=== PATIENT | male | born 1950 | race Caucasian/White ===

== ENCOUNTER 2020-10-10 14:09 | Emergency (ER) | payer MEDICARE, MEDICAID, SELFPAY ==
[2020-10-10 14:10] VITALS: BP 132/79; PULSE 116; RESP 16; TEMP 36.6; O2SAT 98; BMI 23.3
--- NOTE | 2020-10-10 14:48 | HMH.EDWNDL ---
ED Disposition Clinical Impression: Laceration Disposition: Home, Self-Care Condition on Discharge: Good Instructions: DI for Laceration Repair Additional Instructions: Sutures need to be removed in approximately 7 days. Follow-up for wound check with PCP in approximately 3 days. Return to a primary or emergency room provider if you develop fever, foul-smelling drainage from the wound, increasing pain or redness. Change the dressing daily and keep the wound clean and dry. Referrals: Sabina Flores PA [Primary Care Provider] - 3 days - Critical Care Critical Care Time: No Attestation: On 10/10/20, the high probability of a clinically significant, sudden or life threatening deterioration of the following system(s) required my full and direct attention, intervention and personal management. The time I documented below is in addition to time spent performing reported procedures but includes the following listed in this critical care notation. Medical Decision Making - Luis Inquiry Pt receiving controlled substance: No Vital Signs: 10/10/20 14:10 Temperature 98 F Temperature Source Oral Pulse Rate [Radial] 116 H Respiratory Rate 16 Blood Pressure [Right Arm] 132/79 Blood Pressure Mean [Right Arm] 96 Blood Pressure Position [Right Arm] Sitting 02 Sat by Pulse Oximetry 98 Oxygen Delivery Method Room Air Medical Decision Narrative: Laceration repaired as below. No obvious foreign body. No apparent tendon damage. Tetanus updated here. Discussed wound care instructions and precautions. Instructed on suture removal in approximately 7 days. No crush injury. Wound/Laceration HPI - General Chief Complaint: Wound/Laceration Stated Complaint: ao @1330 lac to middle Rt finger Time Seen by Provider: 10/10/20 14:35 Mode of Arrival: Ambulatory Limitations: No Limitations Description of Symptoms (Recalled from ER Triage Doc. by RN): TO ED PER PVT CAR WITH C/O LAC TO RT RING FINGER STATES PUTTING BRAKES ON CAR FELL BACKWARD AND FINGER CAUGHT IN SEAT. - History of Present Illness HPI narrative: This is a 69-year-old male, [id number] who presents to the emergency department for injury to the distal pad of the right long finger that occurred about 30 minutes prior to arrival while he was working on the brake system in his car. He cleaned it out at home and presents here because he thought it might need sutures. No movement limitations. Complains of pain only on the distal pad of the finger. He did not remove any foreign bodies and has not seen any foreign bodies. - Related Data Previous Rx's Medication Instructions Recorded amoxicillin 500 mg capsule 500 mg PO Q12H 10 Days #20 cap 06/07/19 tamsulosin 0.4 mg capsule See Rx Instructions .ROUTE 03/26/20 .COMPLEX #60 cap Allergies Allergy/AdvReac Type Severity Reaction Status Date / Time No Known Drug Allergies Allergy Unknown Verified 02/20/19 13:16 [NKDA] [facility] History - Hepatitis A Screen Drug use history?: No High risk sexual behaviors?: No History of sexually transmitted infection?: No Currently employed?: No Childcare worker?: No Do you have indoor plumbing?: Yes Do you have electricity?: Yes Attestation statement:: This patient has been screened for Hepatitis A risk factors. I have reviewed the patient's past medical history: Yes Medical History: Reports:: Cancer (BLADDER), Gastroesophageal Reflux Disease(GERD) Other Medical History: Reports: Other Other Surgeries: Yes: Cancer Surgery, Colonoscopy Amputation: No Fractures: Yes (left wrist) Comment: Bladder Cancer - Social History Smoking Status: Current every day smoker Tobacco Type: cigarettes # Packs/Day (cigarettes): 1 Alcohol Intake: never Substance Use Type: denies use Occupational Status: retired Housing: apartment Household Members: none Family Hx:: Cancer ROS Obtained: Yes All systems reviewed & no additional complaints Physical Exam - Gen
--- NOTE | 2020-10-10 14:55 | PC.NURSE ---
PSO DRESSING APPLIED TO RT RING FINGER
[2020-10-10 15:20] VITALS: BP 145/78; PULSE 78; RESP 16; TEMP 36.6; O2SAT 98
== END 2020-10-10 15:22 | disposition home or self-care (01) ==
PROVIDERS: Emergency Provider Emergency Medicine; PCP Physician Assistant
DX: S61.214A Laceration without foreign body of right ring finger without damage to nail, initial encounter (principal); W26.9XXA Contact with unspecified sharp object(s), initial encounter; Y92.89 Other specified places as the place of occurrence of the external cause; K21.9 Gastro-esophageal reflux disease without esophagitis; F17.210 Nicotine dependence, cigarettes, uncomplicated; Z23 Encounter for immunization
CPT/HCPCS: 12001; 90471; 90715; 99282

== ENCOUNTER → 2022-10-05 23:15 | Outpatient (CLI) | payer MEDICARE, MEDICAID, SELFPAY ==
[2022-10-05 18:30] LABS: Basophils % 0.2 % (0.1-2.0); Eosinophils # 0.1 K/mm3 (0.0-0.4); Eosinophils % 1.1 % (0.1-12.0); Hematocrit 49.1 % (42.0-52.0); Hemoglobin 15.9 g/dL (14.1-18.0); Lymphocytes # 1.6 K/mm3 (0.7-4.5); Lymphocytes % 21.4 % (10-50); Mean Corpuscular HGB Conc 32.5 g/dL (31.8-35.4); Mean Corpuscular Hemoglobin 29.2 pg (27.0-31.2); Mean Corpuscular Volume 89.9 fl (80-94); Mean Platelet Volume 9.5 fl (7.4-10.4); Monocytes # 0.5 K/mm3 (0.1-1.0); Monocytes % 6.2 % (1.7-9.3); Neutrophils # 5.4 K/mm3 (1.8-7.8); Neutrophils % 71.2 % (37.0-80.0); Platelet Count 257 K/mm3 (142-424); Red Blood Count 5.46 M/mm3 (4.60-6.20); Red Cell Distribution Width 14.6 % (11.5-17.5); White Blood Count 7.5 K/mm3 (4.8-10.8)
[2022-10-05 18:39] LABS: Alanine Aminotransferase 20 U/L (12-78); Albumin Level 4.7 g/dl (3.5-5.0); Albumin/Globulin Ratio 1.3 (1.1-1.8); Alkaline Phosphatase 86 U/L (38-126); Anion Gap 17.3 mEq/L (5-15); Aspartate Amino Transferase 25 U/L (17-59); Bilirubin,Total 0.9 mg/dl (0.2-1.3); Blood Urea Nitrogen 12 mg/dl (9-20); Calcium 9.4 mg/dl (8.4-10.2); Carbon Dioxide 25 mmol/L (22.0-30.0); Chloride 103 mmol/L (98-107); Chol/HDL Ratio 5.3 (1-3.5); Cholesterol 187 mg/dl (140-200); Estimated Glomerular Filt Rate 95 ml/min (>60); GFR (African American) 115 ML/MIN (>60); Globulin 3.6 g/dL (1.3-3.2); Glucose 104 mg/dl (74-100); HDL Cholesterol 35 mg/dl (40-60); Potassium 4.3 mmoL/L (3.5-5.1); Sodium 141 mmol/L (136-145); Total Protein,Serum 8.3 g/dl (6.3-8.2); Triglycerides 154 mg/dl (30-150); VLDL Cholesterol 31 mg/dL (0-40)
[2022-10-05 18:50] LABS: Direct LDL Cholesterol 113.61 mg/dL (100-129)
[2022-10-05 19:13] LABS: Prostate Specific Ag Screen 3.1 ng/ml (0.0-4.0); Thyroid Stimulating Hormone 3.35 uIU/mL (0.465-4.68)
== END ==
PROVIDERS: PCP Physician Assistant; Visit Provider Physician Assistant
DX: K21.9 Gastro-esophageal reflux disease without esophagitis (principal); Z85.51 Personal history of malignant neoplasm of bladder; Z12.5 Encounter for screening for malignant neoplasm of prostate; Z01.818 Encounter for other preprocedural examination; Z79.899 Other long term (current) drug therapy; N40.1 Benign prostatic hyperplasia with lower urinary tract symptoms; H26.9 Unspecified cataract
CPT/HCPCS: 80053; 80061; 84443; 85025; G0103

== ENCOUNTER 2023-10-26 10:05 | Outpatient (CLI) | payer MEDICARE, MEDICAID, SELFPAY ==
[2023-10-26 19:06] LABS: Basophils # 0.1 K/mm3 (0-0.2); Basophils % 0.6 % (0.1-2.0); Eosinophils # 0.1 K/mm3 (0.0-0.4); Eosinophils % 1.5 % (0.1-12.0); Hematocrit 49.9 % (42.0-52.0); Hemoglobin 15.9 g/dL (14.1-18.0); Lymphocytes # 1.6 K/mm3 (0.7-4.5); Lymphocytes % 20.3 % (10-50); Mean Corpuscular HGB Conc 31.8 g/dL (31.8-35.4); Mean Corpuscular Hemoglobin 30.6 pg (27.0-31.2); Mean Corpuscular Volume 96.1 fl (80-94); Mean Platelet Volume 10.5 fl (7.4-10.4); Monocytes # 0.6 K/mm3 (0.1-1.0); Monocytes % 8.1 % (1.7-9.3); Neutrophils # 5.5 K/mm3 (1.8-7.8); Neutrophils % 69.4 % (37.0-80.0); Platelet Count 289 K/mm3 (142-424); Red Blood Count 5.19 M/mm3 (4.60-6.20); Red Cell Distribution Width 15.1 % (11.5-17.5); White Blood Count 7.9 K/mm3 (4.8-10.8)
[2023-10-26 19:16] LABS: Microalbumin/Creatinine Ratio 9.3
[2023-10-26 19:19] LABS: Creatinine,Urine Random 152 mg/dL (Not Estab.)
[2023-10-26 19:40] LABS: Hemoglobin A1C 5.2 % (4.0-6.0)
[2023-10-26 22:01] LABS: Alanine Aminotransferase 20 U/L (12-78); Albumin Level 4.3 g/dl (3.5-5.0); Albumin/Globulin Ratio 1.2 (1.1-1.8); Alkaline Phosphatase 75 U/L (38-126); Anion Gap 12.5 mEq/L (5-15); Aspartate Amino Transferase 32 U/L (17-59); Bilirubin,Total 0.9 mg/dl (0.2-1.3); Blood Urea Nitrogen 10 mg/dl (9-20); Calcium 9.4 mg/dl (8.4-10.2); Carbon Dioxide 23 mmol/L (22.0-30.0); Chloride 108 mmol/L (98-107); Estimated Glomerular Filt Rate 95 ml/min (>60); GFR (African American) 115 ML/MIN (>60); Globulin 3.5 g/dL (1.3-3.2); Glucose 103 mg/dl (74-100); Potassium 4.5 mmoL/L (3.5-5.1); Sodium 139 mmol/L (136-145); Total Protein,Serum 7.8 g/dl (6.3-8.2)
[2023-10-26 22:18] LABS: 25-OH Vitamin D, Total 26.9 ng/mL (30-100)
[2023-10-26 22:33] LABS: Prostate Specific Ag Screen 2.8 ng/ml (0.0-4.0); Thyroid Stimulating Hormone 6.63 uIU/mL (0.465-4.68)
== END 2023-10-26 23:59 | disposition home or self-care (01) ==
LOC: LAB.DROPOF 10-27 09:41
PROVIDERS: PCP Internal Medicine; Visit Provider Internal Medicine
DX: R53.83 Other fatigue (principal); R73.03 Prediabetes; E55.9 Vitamin D deficiency, unspecified; Z12.5 Encounter for screening for malignant neoplasm of prostate; Z13.1 Encounter for screening for diabetes mellitus
CPT/HCPCS: 80050; 80053; 82043; 82306; 82570; 83036; 84443; 85025; G0103

== ENCOUNTER 2023-10-27 11:20 | Outpatient (CLI) | payer MEDICARE, MEDICAID, SELFPAY ==
[2023-10-27 19:38] LABS: Free T4 (Free Thyroxine) 1.22 ng/dl (0.78-2.19)
[2023-10-27 20:13] LABS: Thyroid Stimulating Hormone 5.91 uIU/mL (0.465-4.68)
[2023-10-29 12:13] LABS: Thyroid Peroxidase Antibodies <9 IU/mL (0-34); Triiodothyronine (T3) Total 144 ng/dL (71-180)
[2023-10-29 17:20] LABS: Thyroglobulin Level <1.0 IU/mL (0.0-0.9)
== END 2023-10-27 23:59 | disposition home or self-care (01) ==
LOC: LAB.DROPOF 10-28 11:20
PROVIDERS: PCP Internal Medicine; Visit Provider Internal Medicine
DX: R53.83 Other fatigue (principal); E03.9 Hypothyroidism, unspecified
CPT/HCPCS: 84439; 84443; 84480; 86376; 86800

== ENCOUNTER 2023-11-12 14:43 | Outpatient (CLI) | payer MEDICARE, MEDICAID, SELFPAY ==
--- NOTE | 2023-11-12 14:47 | CT_ITS ---
FINAL REPORT TECHNIQUE: Thin section axial images were obtained from the lung apices to the upper abdomen by computed tomography. Reformatted images were obtained and reviewed. This study was performed with techniques to keep radiation doses al low as reasonably achievable (ALARA). Individualized dose reduction techniques using automated exposure control or adjustment of mA and/or kV according to the patient's size were employed. CLINICAL HISTORY: lung cancer screening CURRENT SMOKER 55 YEARS, 1PPD COMPARISON: None FINDINGS: CHEST CT LOW DOSE 73-year-old male, current smoker, [id number] history CTDI vol (mGy): 2.9 DLP (mGy-cm): 107.59 There is no axillary adenopathy. Multiple mildly enlarged mediastinal nodes, many of which are calcified. A small hiatal hernia is present. The heart is normal in size. Severe coronary artery calcifications are present. There is no pericardial or pleural effusion. There is severe emphysema and mild pulmonary scarring. Lung window images demonstrate there are several right middle lobe nodules, one of the larger measures 5 mm in size, best seen on image #60 of series 3. There is a left lung base 6 mm nodule, best seen on image #72 of series 3. There are several calcified granulomas present. Limited images of the upper abdomen are unremarkable. IMPRESSION: Lung-RADS category 3S, the S designation for coronary artery calcifications. Recommend 6 month follow up low dose chest CT. Reviewed, Interpreted and Dictated by Khoa Dale III, MD Transcribed by Sabi Anand Authenticated and [facility]
== END 2023-11-12 23:59 | disposition home or self-care (01) ==
LOC: RAD 14:43
PROVIDERS: PCP Internal Medicine; Visit Provider Internal Medicine
DX: Z87.891 Personal history of nicotine dependence (principal)
CPT/HCPCS: 71271

== ENCOUNTER 2023-12-23 13:02 | Day surgery (SDC) | payer MEDICARE, MEDICAID, SELFPAY ==
[2023-12-20 17:18] VITALS: BMI 23.6
--- NOTE | 2023-12-23 | ECG_ITS ---
APPROVED REPORT Exam: Resting ECG HR:89 bpm ECG Measurements Heart Rate 89 AXES GA 188 P 68 QRSd 147 QRS 47 QT 386 T -13 QTc 433 Conclusion SINUS RHYTHM WITH FREQUENT VENTRICULAR PREMATURE COMPLEXES IN A BIGEMINAL PATTERN RIGHT BUNDLE BRANCH BLOCK [120+ ms QRS DURATION, UPRIGHT V1, 40+ ms S IN I/aVL/V4/V5/V6] ABNORMAL ECG UNCONFIRMED REPORT Electronically signed by : Kian Thompson MD 12/24/2023 09:33:26
[2023-12-23 13:36] VITALS: BP 136/78; PULSE 89; RESP 18; TEMP 36.4; O2SAT 98
--- NOTE | 2023-12-23 13:57 | P.PNANES_ITS ---
[facility] Disclaimer: The information contained in this section may have been updated after the patient was seen, as this information can be updated by other users. Medical History Skin cancer Fatigue Bladder cancer GERD (gastroesophageal reflux disease) Surgical History H/O colonoscopy History of bladder surgery Family History Other No significant family history Social History Smoking Status: Current every day smoker tobacco type: cigarettes packs per day: 1 alcohol intake: never substance use type: denies use current occupational status: retired Travel in the last 8 weeks: None household members: none housing: apartment [facility] Anesthesia Checklist Patient Identification Patient Identification: Arm Band Structural Data Admitted From: Home Planned Operative Procedure/s: EGD Consent for Planned Operative Procedure(s) Verified: Yes Verified Documents: Surgical Consent and History and Physical NPO Status Verified Time NPO: 00:00 Additional verifications Anesthesia Reactions: No Airway Assessment Mallampati Score:: Class II C-Spine Mobility Assessed: Yes TMJ Mobility Assessed: Yes Dentition: Edentulous Neurological Assessment Level of Consciousness: Awake, Alert and Appropriate Anesthesia Plan Anesthesia Risk discussed: Yes Anesthesia Plan: Verified ASA Class: III Anesthesia Type: MAC
[2023-12-23 14:20] VITALS: O2SAT 100
--- NOTE | 2023-12-23 14:33 | EXP.HP ---
History of Present Illness *Admission Date: 12/23/23 *Reason for visit:: Screening *History of present illness: Mr. Gillis is a 73-year-old gentleman who is here for screening colonoscopy. His last colonoscopy was 10 to 12 years ago. The examination is deemed medically necessary for colonoscopy. The patient has been seen, interviewed and examined prior to the procedure by both myself and the anesthesia provider. [facility] Disclaimer: The information contained in this section may have been updated after the patient was seen, as this information can be updated by other users. Medical History (Updated 12/23/23 @ 15:43 by César Win II, MD) Skin cancer Fatigue Bladder cancer GERD (gastroesophageal reflux disease) Surgical History H/O colonoscopy History of bladder surgery Family History Other No significant family history Social History Smoking Status: Current every day smoker tobacco type: cigarettes packs per day: 1 alcohol intake: never substance use type: denies use current occupational status: retired Travel in the last 8 weeks: None household members: none housing: apartment Other Medical History Have you received the Flu Vaccine for this season: No Have you received the Pneumonia Vaccine: No Review of Systems Review of Systems Review of systems (narrative): Negative *Cardiovascular Comments: Negative *Gastrointestinal Comments: Negative *Genitourinary Comments: Negative *Musculoskeletal Comments: Negative *Neurologic Comments: Negative Meds Home Medications and Allergies Home Medications ?Medication ?Instructions ?Recorded ?Confirmed ?Type cholecalciferol (vitamin D3) 125 125 mcg PO DAILY #30 caps 10/27/23 12/20/23 Rx mcg (5,000 unit) capsule dexlansoprazole 60 mg See Rx Instructions .Route 10/28/23 12/20/23 Rx capsule,biphase delayed release .COMPLEX #90 caps tamsulosin 0.4 mg capsule See Rx Instructions .Route 10/28/23 12/20/23 Rx .COMPLEX #180 caps New Prescriptions to Start Prescriptions: Allergies Allergy/AdvReac Type Severity Reaction Status Date / Time No Known Drug Allergies Allergy Unknown Verified 10/27/23 10:05 [NKDA] Exam Data for Last 24 hours Vital signs and Labs for Last 24 Hours: Temp Pulse Resp BP Pulse Ox O2 Del Method O2 Flow Rate 97.5 F L 89 18 136/78 98 Nasal Cannula 5 12/23/23 13:36 12/23/23 13:36 12/23/23 13:36 12/23/23 13:36 12/23/23 13:36 12/23/23 14:20 12/23/23 14:20 I & O for Last 24 hours: Intake & Output 12/20/23 12/21/23 12/22/23 12/23/23 23:59 23:59 23:59 23:59 Weight 160 lb *Routine HEENT Exam Head: Present normocephalic Eye: Present EOMI and PERRL ENT: Present mucous membranes moist *Routine Neck Exam Neck: Present supple *Routine Respiratory Exam Respiratory: Present CTA bilaterally *Routine Cardiovascular Exam Cardiovascular: Present RRR *Routine Abdominal Exam Abdominal: Present soft and normoactive bowel sounds; Absent tenderness *Routine Rectal Exam Rectal:: deferred *Routine Genitalia Exam Genitalia:: deferred *Routine Extremities Exam Extremities: Absent cyanosis, clubbing or edema *Routine Skin Exam Skin: Present warm; Absent rash *Routine Neurological Exam Neurological: Present alert and oriented X3 Assessment and Plan *Assessment and plan (1) Screening for colon cancer: Status: Acute Category: Medical Code(s): Z12.11 - Encounter for screening for malignant neoplasm of colon Plan A/P: 1. Screening for colon cancer is the preprocedural diagnosis. The patient will be anesthetized/sedated using MAC sedation. The patient has been seen and examined. Cardiac and lung assessment prior to the examination is stable. Proceed with planned colonoscopy
--- NOTE | 2023-12-23 14:52 | P.CONCA_ITS ---
History of Present Illness History of Present Illness Consult date: 12/23/23 Consult reason: pre-op evaluation Chief complaint: Preop eval for bigeminy History of present illness: This is a 73-year-old white male with past medical history of BPH, history of bladder cancer, gastric reflux and tobacco use who presented to preop today for colonoscopy. Preop EKG was obtained which shows normal sinus rhythm with frequent PVCs in a bigeminal pattern rate 89, right bundle branch block. Cardiology was asked to consult for clearance. Patient resting comfortably, denies chest pain, shortness of breath, palpitations, dizziness. Patient repo rts he has never seen cardiology or had any problems with his heart. [facility] Disclaimer: The information contained in this section may have been updated after the patient was seen, as this information can be updated by other users. Medical History (Updated 12/23/23 @ 14:56 by Edith Joyner APRN) Skin cancer Fatigue Bladder cancer GERD (gastroesophageal reflux disease) Surgical History H/O colonoscopy History of bladder surgery Family History Other No significant family history Social History Smoking Status: Current every day smoker tobacco type: cigarettes packs per day: 1 alcohol intake: never substance use type: denies use current occupational status: retired Travel in the last 8 weeks: None household members: none housing: apartment Review of Systems Review of Systems Review of systems:: pertinent systems reviewed and negative unless documented below Exam Data for Last 24 hours Vital signs and Labs for Last 24 Hours: Temp Pulse Resp BP Pulse Ox O2 Del Method O2 Flow Rate 97.5 F L 89 18 136/78 98 Nasal Cannula 5 12/23/23 13:36 12/23/23 13:36 12/23/23 13:36 12/23/23 13:36 12/23/23 13:36 12/23/23 14:20 12/23/23 14:20 I & O for Last 24 hours: Intake & Output 12/20/23 12/21/23 12/22/23 12/23/23 23:59 23:59 23:59 23:59 Weight 160 lb Constitutional Constitutional: no acute distress *Routine Respiratory Exam Respiratory: Present CTA bilaterally and symmetric chest movement *Routine Cardiovascular Exam Cardiovascular: Present RRR, Normal S1 and Normal S2 *Routine Abdominal Exam Abdominal: Present soft and normoactive bowel sounds; Absent tenderness *Routine Extremities Exam Extremities: Present full ROM and normal capillary refill; Absent edema *Routine Skin Exam Skin: Present intact, dry and warm Detailed Neck Exam: Thyroids Thyroid: Absent bruit Meds Home Medications and Allergies Home Medications ?Medication ?Instructions ?Recorded ?Confirmed ?Type cholecalciferol (vitamin D3) 125 125 mcg PO DAILY #30 caps 10/27/23 12/20/23 Rx mcg (5,000 unit) capsule dexlansoprazole 60 mg See Rx Instructions .Route 10/28/23 12/20/23 Rx capsule,biphase delayed release .COMPLEX #90 caps tamsulosin 0.4 mg capsule See Rx Instructions .Route 10/28/23 12/20/23 Rx .COMPLEX #180 caps New Prescriptions to Start Prescriptions: Allergies Allergy/AdvReac Type Severity Reaction Status Date / Time No Known Drug Allergies Allergy Unknown Verified 10/27/23 10:05 [NKDA] Assessment and Plan *Assessment and plan (1) Frequent PVCs: Status: Acute Category: Medical Code(s): I49.3 - Ventricular premature depolarization (2) Bigeminy: Status: Acute Category: Medical Code(s): I49.8 - Other specified cardiac arrhythmias Plan Frequent PVCs Bigeminy EKG shows sinus rhythm with frequent PVCs in a bigeminal pattern, rate 89, right bundle branch block. Recommend obtaining labs- checking BMP and troponin If labs are normal can administer metoprolol succinate 25 mg p.o. x 1 and proceed with procedure If troponin comes back elevated please consult Dr. Wang for further orders If hypokalemia is present will need replacement Patient will need outpatient cardiology follow-up for echo and additional testing CV summary 12/23/2023: Will check BMP and troponin. If hypokalemia is present will need replacement. If troponin is normal can proceed with colonoscopy after administering metoprolol succinate 25 mg p.o. x 1. If troponin is abnormal please contact Dr. Wang for further orders. Patient will need outpatient cardiology follow-up and echo.
[2023-12-23 15:12] LABS: Basophils # 0.1 K/mm3 (0-0.2); Basophils % 0.9 % (0.1-2.0); Eosinophils # 0.2 K/mm3 (0.0-0.4); Eosinophils % 1.5 % (0.1-12.0); Hematocrit 45.2 % (42.0-52.0); Hemoglobin 15.9 g/dL (14.1-18.0); Lymphocytes # 1.5 K/mm3 (0.7-4.5); Lymphocytes % 15.2 % (10-50); Mean Corpuscular HGB Conc 35.2 g/dL (31.8-35.4); Mean Corpuscular Hemoglobin 30.6 pg (27.0-31.2); Mean Platelet Volume 8.5 fl (7.4-10.4); Monocytes # 0.6 K/mm3 (0.1-1.0); Monocytes % 5.9 % (1.7-9.3); Neutrophils # 7.7 K/mm3 (1.8-7.8); Neutrophils % 76.5 % (37.0-80.0); Platelet Count 238 K/mm3 (142-424); Red Blood Count 5.19 M/mm3 (4.60-6.20); White Blood Count 10.1 K/mm3 (4.8-10.8)
[2023-12-23 15:18] LABS: Chloride 107 mmol/L (98-107); Potassium 4.1 mmoL/L (3.5-5.1); Sodium 139 mmol/L (136-145)
[2023-12-23 15:21] LABS: Anion Gap 12.1 mEq/L (5-15); Blood Urea Nitrogen 9 mg/dl (9-20); Calcium 9.5 mg/dl (8.4-10.2); Carbon Dioxide 24 mmol/L (22.0-30.0); Creatinine Clearance Estimated 67 mL/min (50-200); Estimated Glomerular Filt Rate 82 ml/min (>60); GFR (African American) 100 ML/MIN (>60); Glucose 104 mg/dl (74-100)
[2023-12-23 15:34] LABS: Troponin I < 0.01 ng/ml (0.00-0.034)
--- NOTE | 2023-12-23 15:43 | P.PCN_ITS ---
[facility] Procedure Note Date: 12/23/23 Time: 15:43 Procedure Note:: Colonoscopy Procedure Report: Colonoscopy with endoscopic mucosal resection/EMR (submucosal injection, snare cautery, soft coagulation and Endo Clip placement) and cold snare polypectomy Endoscopist: César Win II, MD Referring physician: Marvin Harkins MD Date of Procedure: December 23, 2023 Equipment: Olympus 190 variable stiffness pediatric colonoscope Sedation: MAC sedation Indication: Mr. Gillis is a 73-year-old gentleman who is here for screening colonoscopy. His last colonoscopy was 10 or 12 years ago. He reports no abdominal pain, weight loss, change in his bowel habits or rectal bleeding. He may occasionally skip a day without a bowel movement. He does state that his father may have had colon cancer at the age of 70. The patient's recent hemoglobin 15.9 and hematocrit 45.2 were normal today. He had normal troponins. Procedure: Prior to the procedure, a history and physical exam was performed, and patient's medications and allergies were reviewed. The risks, benefits and alternatives of the sedation and procedure were discussed with the patient. All questions were answered and informed consent was obtained. The patient was brought to the procedure room. Patient identification and proposed procedure were verified by the physician and the nurse. The patient was placed in a left lateral decubitus position and the scope was passed under direct vision. Throughout the procedure, the patient's blood pressure, pulse, and oxygen saturations were monitored continuously. The colonoscopy was accomplished without difficulty. The patient tolerated the procedure well. Findings: On digital rectal examination there was normal rectal tone. There were no external hemorrhoids. The prostate was 2-3+ with a nodule along the right upper lateral margin of the prostate. The colonoscope was introduced through the anal canal to the rectum and advanced to the cecum. The ileocecal valve and appendiceal orifice were identified. The scope was advanced a short distance into the ileum which appeared grossly normal. The scope was then withdrawn into the colon. There was a large 22?23 mm laterally spreading granular sessile tubular adenoma extending over a haustral fold in the proximal ascending colon. Based on its size, this was removed via EMR. The base of the polyp was injected with Eleview and 10 mL of Eleview were injected. Next, the snare was utilized to remove this completely in piecemeal resection using snare cautery. Next, the margins of this polyp were coagulated using soft coagulation. Lastly, the larger post polypectomy site was closed using 2 endoclips. There were 10 additional polyps (ascending x 1 (4 mm), descending x 5 (4, 5, 5, 6 and 8 mm), and rectosigmoid/rectal x 4 (5, 6, 6 and 8 mm). The remaining smaller polyps were all removed via cold snare polypectomy. The cecum, ascending and transverse colon and mucosa were grossly normal. There were scattered diverticuli throughout the descending and sigmoid colon (LEFT colon). The rectum itself was normal. Upon retroflexion within the rectum there were grade 2 internal hemorrhoids. The preparation was excellent throughout with [place] Preparation Score of 9. The cecal time was 22 minutes. Impression: 1. Large sessile advanced adenomatous polyp (22 to 23 mm?laterally spreading granular adenomatous polyp) status post EMR resection 2. 10 additional diminutive colonic polyps 3. Left-sided diverticulosis 4. Grade 2 internal hemorrhoids 5. Prostate nodule right upper lateral margin Plan: I will follow-up the polyp histology and recommend repeat surveillance colonoscopy again in 6 months. I will discuss the findings with the patient and family. I will order PSA testing today as well. I would like for him to begin a fiber bowel regimen.
[2023-12-23 16:22] VITALS: BP 91/56; PULSE 106; RESP 14; O2SAT 95
[2023-12-23 16:32] VITALS: BP 89/61; PULSE 96; RESP 18; O2SAT 96
[2023-12-23 16:42] VITALS: BP 117/66; PULSE 104; RESP 18; O2SAT 96
[2023-12-23 16:52] VITALS: BP 139/69; PULSE 96; RESP 18; O2SAT 96
== END 2023-12-23 16:52 | disposition home or self-care (01) ==
PROVIDERS: Nurse Practitioner; PCP Internal Medicine; Visit Provider Internal Medicine Gastroenterology
PROC: 0DJD8ZZ Inspection of Lower Intestinal Tract, Via Natural or Artificial Opening Endoscopic (ICD-10-PCS; CPT 45378; principal; 2023-12-23 14:30)
DX: Z12.11 Encounter for screening for malignant neoplasm of colon (principal); D12.7 Benign neoplasm of rectosigmoid junction; D12.2 Benign neoplasm of ascending colon; I49.3 Ventricular premature depolarization; I49.8 Other specified cardiac arrhythmias; F17.210 Nicotine dependence, cigarettes, uncomplicated; Z80.0 Family history of malignant neoplasm of digestive organs
CPT/HCPCS: 45390; 80048; 84153; 84484; 85025; 88305; 93005

== ENCOUNTER 2024-06-15 13:28 | Outpatient (CLI) | payer MEDICARE, MEDICAID, SELFPAY ==
--- NOTE | 2024-06-15 | CA_ITS ---
APPROVED REPORT EXAM: Comprehensive 2D, Doppler, and color-flow Echocardiogram Publications Sales Representative: CAROLIN Devine, RVS Ht: 5 ft 8 in Wt: 159lbs BSA: 1.85 BP: 140/68 mmHg Indications: LV function, Smokeer, Emphysema, Pre-op, Abn EKG-Bigeminy 2D Dimensions IVSd 1.01 cm LVEF (Visual) 73.40 % PWd 1.09 cm LA Volume 49.10 mL LVDd 4.79 cm LA Volume Index 25.80 mL/m2 (M/F) 16-34 LVDs 2.76 cm Left Atrium 4.45 cm M-Mode Dimensions LA Diam 3.37 cm (1.9-4.0) EPSs 0.85 cm TAPSE 1.83 (<1.7) LV Diastology E Decel Time 187 (160-240 msec) E/A Ratio 0.81 MED A' 11.10 cm/s LAT A' 12.60 cm/s Aortic Valve KIERSTEN Index 1.18 cm2/m2 AoV Peak Damian. 112.0 (50-130 cm/s) AO Peak GR. 5.00 mmHg AO Mean GR. 2.70 (<5 mmHg) AO VTI 24.7 (18-25 cm) KIERSTEN (VTI) 2.24 (2.5-4.5 cm2) Mitral Valve MV A Velocity 86.0 (40-130 cm/s) E/A Ratio 0.81 Pulmonary Valve NV End VMAX 177.0 cm/s Tricuspid Valve TR P. Velocity 208.00 cm/s RAP Estimate 10.00 mmHg RVSP 27.30 mmHg Left Ventricle The left ventricle is normal size. The left ventricular systolic function is normal. The left ventricular ejection fraction is within the normal range. There is increased LV wall thickness. There is normal LV segmental wall motion. Transmitral Doppler flow pattern suggests impaired LV relaxation. LVEF is 55%. Right Ventricle Right ventricle is mildly dilated. The right ventricular systolic function is normal. Atria The left atrium size is normal. The right atrium size is normal. There is no Doppler evidence of interatrial shunt. Aortic Valve The aortic valve is mildly thickened. There is no aortic valvular stenosis. No aortic regurgitation is present. Mitral Valve The mitral valve is normal in structure and function. No evidence of mitral valve stenosis. Trace mitral regurgitation. Tricuspid Valve Tricuspid valve is grossly normal in structure and function. Mild tricuspid regurgitation. RVSP is 20-25 mmHg. Pulmonic Valve The pulmonary valve is normal in structure. Mild pulmonic regurgitation. Great Vessels The aortic root is normal in size. IVC is normal in size and collapses >50% with inspiration. Pericardium There is no pericardial effusion. Other Information Study Quality: Fair Conclusion Normal biventricular systolic function. Mild RV dilation. Mild TR, mild PI. Electronically signed by : Kathleen Li MD 06/18/2024 22:38:53
== END 2024-06-15 23:59 | disposition home or self-care (01) ==
LOC: RT 13:29
PROVIDERS: PCP Nurse Practitioner Family; Visit Provider Physician Assistant
DX: I51.7 Cardiomegaly (principal); I36.1 Nonrheumatic tricuspid (valve) insufficiency; I37.1 Nonrheumatic pulmonary valve insufficiency; I25.10 Atherosclerotic heart disease of native coronary artery without angina pectoris; R06.09 Other forms of dyspnea
CPT/HCPCS: 93306

== ENCOUNTER 2024-08-18 13:15 | Outpatient (CLI) | payer MEDICARE, MEDICAID, SELFPAY ==
--- NOTE | 2024-08-18 13:30 | CT_ITS ---
FINAL REPORT TECHNIQUE: Thin section axial images were obtained through the lungs using a low-dose technique per lung cancer screening protocol. Reconstruction images were obtained using the axial data. Exam was performed using dose reduction technique. CLINICAL HISTORY: lung cancer screening, current smoker, 1ppd for 50 years COMPARISON: 11/12/2023 FINDINGS: CTDLvol: 2.90 DLP: 110.46 Current smoker 50 pack year history Lungs: Emphysema and biapical scarring is stable. There is evidence of prior granulomatous disease. There is a stable 6 mm left lower lobe nodule on series 4, image 68. There are several stable right middle lobe nodules. For example a 5 mm nodule on image 59 is unchanged. No new nodules or masses identified. No consolidation. Lymph nodes: No thoracic lymphadenopathy. Mediastinum: Heart size is normal. Prominent coronary artery calcifications. Pleura/pericardium: No pleural or pericardial effusion. Other: No acute abnormality in the upper abdomen. IMPRESSION: Stable bilateral pulmonary nodules Lung RADS: 2 S Modifier S: Prominent coronary artery calcifications. Recommendation: 12 month follow-up low-dose chest CT recommended. Reviewed, Interpreted and Dictated by Rani Senior MD Transcribed by Maribel Andrews Authenticated and [facility]
== END 2024-08-18 23:59 | disposition home or self-care (01) ==
LOC: RAD 13:16
PROVIDERS: PCP Family Medicine; Visit Provider Family Medicine
DX: Z12.2 Encounter for screening for malignant neoplasm of respiratory organs (principal); R91.8 Other nonspecific abnormal finding of lung field; J43.9 Emphysema, unspecified; F17.210 Nicotine dependence, cigarettes, uncomplicated; I25.10 Atherosclerotic heart disease of native coronary artery without angina pectoris; J98.4 Other disorders of lung
CPT/HCPCS: 71271

== ENCOUNTER 2024-11-10 16:31 | Emergency (ER) | payer MEDICARE, MEDICAID, SELFPAY ==
[2024-11-10 16:38] VITALS: BP 139/61; PULSE 101; RESP 18; TEMP 36.7; O2SAT 95; BMI 23.6
--- NOTE | 2024-11-10 17:02 | XR_ITS ---
PROCEDURE INFORMATION: Exam: XR Left Ankle Exam date and time: 11/10/2024 5:10 PM Age: 74 years old Clinical indication: Injury or trauma; Other: Twisted; Blunt trauma; Ankle; Left; Additional info: Twisted / lateral and medial pain TECHNIQUE: Imaging protocol: Radiologic exam of the left ankle. Views: 3 or more views. COMPARISON: No relevant prior studies available. FINDINGS: Bones/joints: Spiral oblique lucency in the distal fibula consistent with minimally displaced fracture. Soft tissues: Soft tissue swelling of ankle IMPRESSION: Spiral oblique lucency in the distal fibula consistent with minimally displaced fracture.
[2024-11-10] MEDS: ACETAMINOPHEN 500MG TAB 1000 MG PO (17:13)
--- NOTE | 2024-11-10 17:35 | PC.NURSE ---
rounded on patient. no needs at this time. call light in reach
[2024-11-10 18:04] VITALS: BP 148/76; PULSE 85; RESP 18; TEMP 36.6; O2SAT 98
--- NOTE | 2024-11-10 19:00 | ED_ITS ---
<Statement entered by Cruzito Nuñez DO - 11/11/24 16:34> I was consulted by the ASHWIN, and we discussed the complexity of problems being addressed. I approved the treatment and management plan for this patient's care in the emergency department, thus performing a substantive portion of the medical decision making. Cruzito Nuñez DO Discharge Plan Disposition Patient Disposition: Home, Self-Care Prescriptions Prescriptions: No Action tamsulosin 0.4 mg capsule See Rx Instructions .ROUTE .COMPLEX Qty: 90 3RF Dose Instruction: TAKE 1 CAPSULE BY MOUTH TWICE DAILY FOR PROSTATE Rx Instructions: TAKE 1 CAPSULE BY MOUTH TWICE DAILY FOR PROSTATE patient needs to make an appt before anymore refills dexlansoprazole 60 mg capsule,biphase delayed releas See Rx Instructions .ROUTE .COMPLEX Qty: 90 2RF Dose Instruction: Take 1 capsule by mouth once daily Rx Instructions: Take 1 capsule by mouth once daily triamcinolone acetonide 0.1 % cream 1 applic topical BID PRN (Reason: skin lesion) Qty: 15 0RF Plenvu 140-9-5.2 gram powder in packet, sequential 500 ml PO .COMPLEX Qty: 3 0RF Rx Instructions: 500 mL orally; 6 pm evening before take first dose followed by 16 oz of water following instructions on kit. morning of exam take the second dosage followed by 16 oz of water . Referrals Follow up/Referrals: Poly Salas APRN [Primary Care Provider, Family Practice] - See instructions Activity Restrictions/Add. Instructions Additional Instructions/Restrictions: Today you were evaluated in the emergency department and diagnosed with a fracture. You were placed in a plaster splint, do not get this wet. Please use the crutches as directed, please call the orthopedic doctor Wednesday morning for a follow-up appointment. Take Tylenol or Motrin for symptomatic relief. Return to the ED for worsening of condition. Clinical Impressions Clinical Impression: Fibula fracture Instructions Patient Instructions: Ankle Fracture Print Language Print Language: Swedish Discharge ED Provider: Cruzito Nuñez General Adult HPI General Chief complaint: Extremity Injury, Lower Stated complaint: AO 9-12 twisted left foot pain Time Seen by Provider: 11/10/24 16:56 Mode of Arrival: Ambulatory Source of Information: Patient Description of Symptoms (Recalled from ER Triage Doc. by RN): daniel presents to the ED after he got his foot stuck between a curb and a step. patient rates his left ankle pain at a 8/10 History of Present Illness HPI narrative: patient is a 69 year old male PMHx tobacco use, CAD, bladder ca, GERD who presents to the ED for a left ankle injury. Pt state he was stepping out of his car when his left ankle rolled, hitting his left ankle against a concrete curb. 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 He has been ambulatory since with significant pain in his left ankle, mostly lateral ankle pain Related Data Previous Rx's ?Medication ?Instructions ?Recorded dexlansoprazole 60 mg See Rx Instructions .Route 0 07/27/24 capsule,biphase delayed release .COMPLEX #90 caps tamsulosin 0.4 mg capsule See Rx Instructions .Route 0 07/27/24 .COMPLEX #90 caps triamcinolone acetonide 0.1 % 1 applic topical BID PRN skin 07/27/24 topical cream lesion #15 grams [id number] 140 gram-sod sulfate 9 500 ml PO .COMPLEX colo nscopy #3 ea 09/29/24 gram-NaCl 5.2gram-KCl-C oral pwdr packs (Plenvu) Allergies Allergy/AdvReac Type Severity Reaction Status Date / Time No Known Drug Allergies Allergy Unknown Verified 06/22/24 09:46 (NKDA) [facility] Disclaimer: The information contained in this section may have been updated after the patient was seen, as this information can be updated by other users. Medical History Coronary artery calcification seen on CT scan Skin cancer Fatigue Bladder cancer GERD (gastroesophageal reflux disease) Surgical History H/O colonoscopy History of bladder surgery Family History Other No significant family history Social History Smoking Status: Current every day smoker tobacco type: cigarettes packs per day: 1 alcohol intake: never substance use type: denies use current occupational status: retired Travel in the last 8 weeks?: None household members: none housing: apartment Have you lived/traveled outside US in past 30 days?: No Contact w/someone who lives/traveled outside US past 30 days?: No Exposure to someone with infectious disease in past 14 days?: No Do you have a fever (greater than 100.4 F or 38 C)?: No Have you tested positive for COVID-19?: No Exposed to someone with COVID-19 in past 14 days?: No Do you have a sore throat?: No Do you have a cough?: No Do you have any weakness?: No Do you have any diarrhea?: No Are you experiencing any unusual bleeding?: No Do you have any muscle aches/pain?: No Do you have any abdominal pain?: No Are you experiencing loss of taste or smell?: No Other Medical History Have you received the Flu Vaccine for this season: No Have you received the Pneumonia Vaccine: No ROS Obtained: Yes Systems reviewed as appropriate & no additional complaints except as documented Physical Exam General General appearance: alert Head Head exam: atraumatic Eye Eye exam: Present PERRL Neck Neck exam: Present full ROM Chest Chest inspection: Present normal inspection Respiratory Respiratory exam: Present normal lung sounds bilaterally Cardiovascular Cardiovascular exam: Present regular rate Extremities Exam Extremities exam: Present other (left lateral and medial tenderness and edema. n/v status intact) Neurological Exam Neurological exam: Present alert and oriented X3 Skin Skin exam: Present warm and dry Medical Decision Making Medical Records Screening: Per USPSTF and CDC recommendations, given the prevalence of disease in our region, it is our hospital?s policy to screen for HIV and viral Hepatitis for all patients aged 18 and over and those with ongoing risk factors. Luis Inquiry Pt receiving controlled substance: No Vital Signs: 11/10/24 16:38 11/10/24 18:04 11/10/24 19:17 Temperature 98.0 F 98 F 98.2 F Temperature Source Temporal Artery Scan Temporal Artery Scan Pulse Rate 85 84 Pulse Rate [Right Radial] 101 H Respiratory Rate 18 18 18 Blood Pressure 148/76 H 149/79 H Blood Pressure [Right Arm] 139/61 Blood Pressure Mean [Right Arm] 87 Blood Pressure Source Blood Pressure Source [Right Arm] Automatic Cuff Blood Pressure Position Blood Pressure Position [Right Arm] Sitting 02 Sat by Pulse Oximetry 95 98 Oxygen Delivery Method Room Air Room Air Nasal Cannula 11/10/24 19:20 Temperature 98.1 F Temperature Source Oral Pulse Rate 85 Pulse Rate [Right Radial] Respiratory Rate 16 Blood Pressure 149/79 H Blood Pressure [Right Arm] Blood Pressure Mean [Right Arm] Blood Pressure Source Automatic Cuff Blood Pressure Source [Right Arm] Blood Pressure Position Supine Blood Pressure Position [Right Arm] 02 Sat by Pulse Oximetry Oxygen Delivery Method Room Air Orders (Tests/Meds): ED MEDICATIONS Discontinued Medications Generic Name Dose Route Start Last Admin Trade Name Russell PRN Reason Stop Dose Admin Acetaminophen 1,000 mg 11/10/24 17:02 11/10/24 17:13 Acetaminophen 500mg Tab PO 11/10/24 17:03 1,000 mg ONCE ONE Administration ORDERS Category Date Time Status Ankle XR - Left minimum 3 Views [XR ankle LT min 3V] Exams 11/10/24 17:02 Completed Stat Medical Decision Narrative: In summary, patient is a 69 year old male PMHx tobacco use, CAD, bladder ca, GERD who presents to the ED for a left ankle injury. Pt state he was stepping out of his car when his left ankle rolled, hitting his left ankle against a concrete curb. 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 He has been ambulatory since with significant pain in his left ankle, mostly lateral ankle pain. 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 Did not sustain additional injuries. Upon initial evaluation, patient is A&O, stable. His PE is remarkable for left ankle lateral & medial tenderness & edema, n/v status intact. Administered acetaminophen for pain. Obtained xrays. Xrays remarkable for spiral oblique lucency in the distal fibula consistent with minimally displaced fracture. Splinted with posterior short leg with stirrups on left lower extremity. Used 4 inch soft roll, 4 inch plaster for slab and 2 inch for stirrups. n/v status intact post splint application. Shared decision making used, we discussed using a walker, wheelchair or crutches. I advised patient I was concerned about crutches due to his age and higher fall risk. Pt states he has multiple steps in to his home, and would prefer crutches. He verbalized an understanding of the risk. I advised him if he changes his mind he may call and we can facilitate a wheelchair or walker. I advised him to call Dr. Drummond's office Wednesday for ortho follow up. We discussed not getting the cast wet. Discussed strict return precautions to the ED. Critical Care Critical Care Time Critical Care Time: No
[2024-11-10 19:17] VITALS: BP 149/79; PULSE 84; RESP 18; TEMP 36.8; O2SAT 98
[2024-11-10 19:20] VITALS: BP 149/79; PULSE 85; RESP 16; TEMP 36.7; O2SAT 99
== END 2024-11-10 19:16 | disposition home or self-care (01) ==
PROVIDERS: Emergency Provider Student in an Organized Health Care Education/Training Program; PCP Family Medicine
DX: S82.409A Unspecified fracture of shaft of unspecified fibula, initial encounter for closed fracture (principal)
CPT/HCPCS: 73610; 99283

== ENCOUNTER 2024-11-17 12:23 | Outpatient (CLI) | payer MEDICARE, MEDICAID, SELFPAY ==
--- NOTE | 2024-11-17 12:47 | ECG_ITS ---
APPROVED REPORT Exam: Resting ECG HR:86 bpm ECG Measurements Heart Rate 86 AXES DE 171 P 75 QRSd 133 QRS 47 QT 392 T 25 QTc 435 Conclusion SINUS RHYTHM WITH SINUS ARRHYTHMIA RIGHT BUNDLE BRANCH BLOCK [120+ ms QRS DURATION, UPRIGHT V1, 40+ ms S IN I/aVL/V4/V5/V6] ANTERIOR MYOCARDIAL INFARCTION , OF INDETERMINATE AGE [40+ ms Q WAVE AND/OR ST/T ABNORMALITY IN V3/V4] ABNORMAL ECG UNCONFIRMED REPORT Electronically signed by : Kian Thompson MD 11/19/2024 20:23:55
[2024-11-17 13:30] VITALS: BMI 22.9
== END 2024-11-17 23:59 | disposition home or self-care (01) ==
PROVIDERS: PCP Family Medicine; Visit Provider Orthopaedic Surgery
DX: Z01.810 Encounter for preprocedural cardiovascular examination (principal); I49.8 Other specified cardiac arrhythmias; I45.10 Unspecified right bundle-branch block; I25.2 Old myocardial infarction; R94.31 Abnormal electrocardiogram [ECG] [EKG]
CPT/HCPCS: 93005

== ENCOUNTER 2024-11-21 09:41 | Day surgery (SDC) | payer MEDICARE, MEDICAID, SELFPAY ==
--- NOTE | 2024-11-17 13:10 | XR_ITS ---
FINAL REPORT CLINICAL HISTORY: Pre op surgery smoker, COMPARISON: None FINDINGS: CHEST 2 VIEWS There are underlying emphysematous changes. No acute pulmonary density is present. No significant pleural effusion. There is no pneumothorax. The heart is normal in size. The mediastinum is unremarkable. IMPRESSION: Emphysema without acute process. Reviewed, Interpreted and Dictated by Amy Kwan MD Transcribed by Luisa Richmond Authenticated and . [facility]
[2024-11-17 13:12] VITALS: BMI 23.6
[2024-11-17 13:21] LABS: Hematocrit 42.6 % (42.0-52.0); Hemoglobin 14.1 g/dL (14.1-18.0); Immature Granulocytes % 0.3 %; Mean Corpuscular HGB Conc 33.1 g/dL (31.8-35.4); Mean Corpuscular Hemoglobin 29.4 pg (27.0-31.2); Mean Corpuscular Volume 88.9 fl (80-94); Nucleated Red Blood Cells % 0 %; Platelet Count 262 K/mm3 (142-424); Red Blood Count 4.79 M/mm3 (4.60-6.20); Red Cell Distribution Width-SD 47.3 fL; White Blood Count 7.6 K/mm3 (4.8-10.8)
[2024-11-17 13:31] LABS: Chloride 105 mmol/L (98-107); Potassium 4.0 mmoL/L (3.5-5.1); Sodium 138 mmol/L (136-145)
[2024-11-17 13:34] LABS: Anion Gap 17.0 mEq/L (5-15); Blood Urea Nitrogen 11 mg/dl (9-20); Carbon Dioxide 20 mmol/L (22.0-30.0); Creatinine Clearance Estimated 68 mL/min (50-200); Creatinine,Serum 0.80 mg/dl (0.66-1.25); Estimated Glomerular Filt Rate 94 ml/min (>60); GFR (African American) 114 ML/MIN (>60)
[2024-11-17 13:35] LABS: Calcium 9.4 mg/dl (8.4-10.2); Glucose 88 mg/dl (74-100)
[2024-11-21] VITALS (10 sets, daily range): BP systolic 113–164; BP diastolic 63–78; PULSE 74–89; RESP 16–18; TEMP 36.1–36.6; O2SAT 94–98; BMI 22.9
--- NOTE | 2024-11-21 | XR_ITS ---
FINAL REPORT CLINICAL HISTORY: LT ANKLE IN OR FT 11 seconds .52 mGy FINDINGS: FLUOROSCOPY LESS THAN 1 HOUR HISTORY: Fluoroscopy guidance. Fluoroscopic guidance was provided for left ankle ORIF. T spot films were obtained. A total of 11 seconds of fluoroscopy time were used. Total DAP: 0.52 mGy IMPRESSION: As above. Reviewed, Interpreted and Dictated by Rani Senior MD Transcribed by Maribel Andrews Authenticated and [facility]
--- NOTE | 2024-11-21 10:29 | P.PNANES_ITS ---
[facility] Disclaimer: The information contained in this section may have been updated after the patient was seen, as this information can be updated by other users. Medical History Coronary artery calcification seen on CT scan Skin cancer Fatigue Bladder cancer GERD (gastroesophageal reflux disease) Surgical History H/O colonoscopy History of bladder surgery Family History Mother Family history of cancer Social History Smoking Status: Current every day smoker tobacco type: cigarettes packs per day: 1 alcohol intake: never substance use type: denies use current occupational status: retired Travel in the last 8 weeks?: None household members: none housing: apartment Have you lived/traveled outside US in past 30 days?: No Contact w/someone who lives/traveled outside US past 30 days?: No Exposure to someone with infectious disease in past 14 days?: No Do you have a fever (greater than 100.4 F or 38 C)?: No Have you tested positive for COVID-19?: No Exposed to someone with COVID-19 in past 14 days?: No Do you have a sore throat?: No Do you have a cough?: No Do you have any weakness?: No Are you experiencing any nausea/vomitting?: No Do you have any diarrhea?: No Are you experiencing any unusual bleeding?: No Do you have any muscle aches/pain?: No Do you have any abdominal pain?: No Are you experiencing loss of taste or smell?: No [facility] Anesthesia Checklist Patient Identification Patient Identification: Arm Band and Verbal (Name & ) Structural Data Admitted From: Home Planned Operative Procedure/s: ORIF R ankle Consent for Planned Operative Procedure(s) Verified: Yes Verified Documents: Surgical Consent and History and Physical NPO Status Verified Time NPO: 00:00 Additional verifications Anesthesia Reactions: No Airway Assessment Mallampati Score:: Class II Dentition: Edentulous Neurological Assessment Level of Consciousness: Awake, Alert and Appropriate Hx Seizures: No Numbness or tingling in extremities: No Anesthesia Plan Anesthesia Risk discussed: Yes Anesthesia Plan: Verified ASA Class: III Anesthesia Type: General w/block
[2024-11-21] MEDS: LACTATED RINGERS 1000ML 1,000 ML 100 ML IV (10:37)
--- NOTE | 2024-11-21 12:15 | SUR.OPER ---
1130- Upon removal of patient's splint on his left lower leg, a large fracture blister was noted to the medial malleolus. Dr. Drummond aware and pictures taken on [facility] OR camera. Bruising also noted on left leg and foot.
--- NOTE | 2024-11-21 12:49 | P.OP_ITS ---
Date of procedure: 11/21/24 Pre-op Diagnosis:: Left ankle displaced lateral malleolus fracture Post-op Diagnosis:: Same Procedure performed:: Open reduction internal fixation left ankle lateral malleolus Surgeon:: Rell Drummond DO Hardware Designer(s):: Danny MORAN SUPPLY CHAIN INTERN:: Meena Raymundo Anesthesia: GETA and regional Estimated blood loss (mL): 0 Clinical Note:: Implants Synthes/DePuy distal fibula plate system Operative findings:: See dictation Operative note:: Patient identified preoperatively. Left ankle marked with yes my initials. Underwent a block with anesthesia. Then taken the operating room placed upon operating bed. General anesthesia administered airway secured. Splint was removed from the left lower extremity. There was a large fracture blister on the medial aspect of the ankle out of the way of the incision. Left lower extremity prepped and draped in normal sterile fashion. Once prepped and draped final operative timeout performed to identify proper patient procedure and extremity. Everyone involved in the case agreed. There were no counter indications to beginning. He did receive preoperative antibiotics. Marking pen was used to savanna planned incision over the lateral malleolus x-ray was brought into identify the level of the fracture. Esmarch was used to exsanguinate the extremity and pneumatic tourniquet was inflated to 300 mmHg. Skin knife was used incise through skin careful dissection was taken down to the fracture site. Fracture hematoma was evacuated. The fracture site was cleaned of debris and soft tissue. Fracture edges were approximated and help limit nearly with a [id number] clamp. There is a very short oblique fracture not amendable to lag screw. K wire was placed for pulmonary reduction. Fibula plate was selected from the Synthes set. Plate was then placed onto the fracture which is anatomically reduced seen in the AP and lateral views in the x-ray. Cortical screws were placed proximally to fixate the plate to the fibula and then distal locking screws were placed. This gave good reduction of the ankle mortise reduce the displaced nature of the fracture. Ankle was evaluated radiographically AP and lateral views. Found to be in good reduction. C-arm pictures were saved. Irrigation wound performed. Deep layers closed with Vicryl stitch. Subcutaneous Vicryl stitch. 3-0 nylon interrupted fashion in the skin. Well- padded posterior splint placed. Patient waken anesthesia taken recovery in stable condition. Condition: stable Disposition: PACU Complications:: None apparent
--- NOTE | 2024-11-21 13:06 | P.PNANES_ITS ---
[facility] Anesthesia Record Part I Anesthesia Record I Intake, IV Amount: 800 Hydration: Adequate Estimated blood loss (mL): 10 Urine output (mL): 0 Blood Pressure: 114/63 SaO2: 97 Pulse Rate: 74 Airway Patency: Patent Respiratory Rate: 18 Temperature: 97.8 F Patient is:: Awake and Stable Stable to PACU at:: 13:10
--- NOTE | 2024-11-22 16:14 | EXP.ANES.II ---
[facility] Anesthesia Record Part II Anesthesia Record Part II Discharge Time: 13:30 Destination: Surgical Day Care (OP Surgery) PACU nurse assessment reviewed?: Yes Patient Condition:: Good Anesthesia Complications:: None Swallowing reflex intact?: Yes Airway Patency: Patent Cyanosis?: No Blood Pressure: 130/68 SaO2: 97 Respiratory Rate: 18 Pulse Rate: 84 Temperature: 97.7 F Mental Status: Alert & Oriented Pain level:: 0 Nausea and/or vomitting:: None Intake, IV Amount: 0 Hydration: Adequate
[2024-11-22 16:15] VITALS: BP 130/68; PULSE 84; RESP 18; TEMP 36.5; O2SAT 97
== END 2024-11-21 14:28 | disposition home or self-care (01) ==
PROVIDERS: PCP Family Medicine; Visit Provider Orthopaedic Surgery
PROC: (CPT 27792; principal; 2024-11-21 11:15)
DX: S82.62XA Displaced fracture of lateral malleolus of left fibula, initial encounter for closed fracture (principal); V48.4XXA Person boarding or alighting a car injured in noncollision transport accident, initial encounter; I25.10 Atherosclerotic heart disease of native coronary artery without angina pectoris; K21.9 Gastro-esophageal reflux disease without esophagitis; Z85.828 Personal history of other malignant neoplasm of skin; F17.210 Nicotine dependence, cigarettes, uncomplicated; Z79.899 Other long term (current) drug therapy
CPT/HCPCS: 27792; 71046; 73600; 76000; 80048; 85025; 96374; C1713; J0690; J1100; J2003; J2250; J2371; J2405; J2704; J3010; J7120

== ENCOUNTER 2024-12-04 08:20 | Outpatient (CLI) | payer MEDICARE, MEDICAID, SELFPAY ==
--- NOTE | 2024-12-04 08:23 | XR_ITS ---
FINAL REPORT CLINICAL HISTORY: left ankle post op COMPARISON: 11/10/2024 FINDINGS: AP, oblique, and lateral views of the left ankle were obtained. There is post ORIF of the lateral malleolus. Hardware is intact. No acute osseous changes are seen. There is mild, diffuse soft tissue edema. IMPRESSION: Postoperative changes of the lateral malleolus as above. Reviewed, Interpreted and Dictated by Rani Senior MD Transcribed by Mer Del Rosario Authenticated and [facility]
== END 2024-12-04 23:59 | disposition home or self-care (01) ==
LOC: RAD 08:21
PROVIDERS: PCP Family Medicine; Visit Provider Orthopaedic Surgery
DX: S82.62XD Displaced fracture of lateral malleolus of left fibula, subsequent encounter for closed fracture with routine healing (principal); X58.XXXD Exposure to other specified factors, subsequent encounter
CPT/HCPCS: 73610

== ENCOUNTER 2024-12-29 10:37 | Outpatient (CLI) | payer MEDICARE, MEDICAID, SELFPAY ==
--- NOTE | 2024-12-29 11:05 | XR_ITS ---
FINAL REPORT CLINICAL HISTORY: Left ankle pain COMPARISON: 12/04/2024 FINDINGS: LEFT ANKLE Three views demonstrate a sideplate and screws securing the distal fibula. There is no acute fracture or dislocation. The visualized joint spaces are normally aligned. Ankle mortise is intact. There is mild soft tissue edema about the ankle. IMPRESSION: Sideplate and screws securing the distal fibula. Diffuse soft tissue edema. Reviewed, Interpreted and Dictated by Tavares Lam MD Transcribed by Maribel Andrews Authenticated and [facility]
== END 2024-12-29 23:59 | disposition home or self-care (01) ==
LOC: RAD 10:37
PROVIDERS: PCP Family Medicine; Visit Provider Orthopaedic Surgery
DX: M25.572 Pain in left ankle and joints of left foot (principal); R60.0 Localized edema; Z96.7 Presence of other bone and tendon implants
CPT/HCPCS: 73610

== ENCOUNTER 2025-01-26 11:58 | Outpatient (CLI) | payer MEDICARE, MEDICAID, SELFPAY ==
--- NOTE | 2025-01-26 12:01 | XR_ITS ---
FINAL REPORT CLINICAL HISTORY: left ankle pain COMPARISON: 12/29/2024 FINDINGS: AP, oblique, and lateral views of the left ankle were obtained. Again seen, there are postoperative changes from ORIF of the lateral malleolus. The hardware is intact. There has been interval healing of the fracture. There is degenerative joint disease, similar to the prior exam. There is no acute soft tissue abnormality. IMPRESSION: Postoperative and degenerative changes. Interval healing of the distal fibular fracture. Reviewed, Interpreted and Dictated by Rani Senior MD Transcribed by Luisa Richmond Authenticated and [facility]
--- OUTSIDE RECORDS SUMMARY | 2025-01-26 12:01 | XMS_ITS ---
Author Organization Unknown ENCOUNTERS Encounter Performer Location Date Diagnosis [place] [address] [id number] Emergency [place] [address] [place] [address] [id number] [facility] Emergency [place] [address] [place] [address] [id number] ROGE *Note: Encounters from your own facility or health system may be excluded. Allergies, Adverse Reactions, Alerts Allergen Type Severity Identification Date Medications Name Date Quantity Days Supplied GPI Number
== END 2025-01-26 23:59 | disposition home or self-care (01) ==
LOC: RAD 11:59
PROVIDERS: PCP Family Medicine; Visit Provider Orthopaedic Surgery
DX: S82.62XD Displaced fracture of lateral malleolus of left fibula, subsequent encounter for closed fracture with routine healing (principal); Z96.662 Presence of left artificial ankle joint; M19.072 Primary osteoarthritis, left ankle and foot; X58.XXXD Exposure to other specified factors, subsequent encounter
CPT/HCPCS: 73610

== ENCOUNTER 2025-02-23 11:14 | Outpatient (CLI) | payer MEDICARE, MEDICAID, SELFPAY ==
--- NOTE | 2025-02-23 11:17 | XR_ITS ---
FINAL REPORT TECHNIQUE: Left ankle 3 views CLINICAL HISTORY: lt ankle fx f/u COMPARISON: 01/26/2025 FINDINGS: LEFT ANKLE: Three views demonstrate post-ORIF changes in the distal fibula. The fracture line is not discretely seen on the current exam, and has improved since the prior exam of 01/26/2025. The joint spaces appear normal. IMPRESSION: Post-ORIF changes in the distal fibula with continued healing of the fracture line. Reviewed, Interpreted and Dictated by Amy Kwan MD Transcribed by Sabi Anand Authenticated and [facility][1]
--- OUTSIDE RECORDS SUMMARY | 2025-02-23 11:17 | XMS_ITS ---
Laboratory report Created on: January 30, 2025 JUNIEJÚNIOR : 1950 Sex: Male Author Organization Unknown PROBLEMS Problems List Code Description RESULTS Laboratory Orders Date Order Code Test 2023-10-27 [id number] TRIIODOTHYRONINE (T3) 2023-10-27 [id number] THYROGLOBULIN AN TIBODY 2023-10-27 801443 THYROID PEROXIDA SE (TPO) AB Laboratory Results Date LOINC Test Value Unit Reference Range Interpre tation 2023-10-27 3053-6 TRIIODOTHYRONINE (T3) 144 NG/DL 71-180 2023-10-27 8098-6 THYROGLOBULIN ANTIBODY LTTA IU/ML 0.0-0. 9 2023-10-27 8099-4 THYROID PEROXIDA SE (TPO) AB <9 IU/ML 0-34
== END 2025-02-23 23:59 ==
LOC: RAD 11:15
PROVIDERS: PCP Family Medicine; Visit Provider Orthopaedic Surgery
DX: S82.62XD Displaced fracture of lateral malleolus of left fibula, subsequent encounter for closed fracture with routine healing (principal); X58.XXXD Exposure to other specified factors, subsequent encounter
CPT/HCPCS: 73610